=== PATIENT | female | born 1955 | race Caucasian/White ===

== ENCOUNTER → 2018-01-09 | Day surgery (SDC) | payer BC, OTHER ==
[2018-01-08 11:13] VITALS: BMI 28.9
[~2018-01-09] MED LIST: Cyclopentolate 1% Opth Drop 2 ML BOT FS SCH; Cyclopentolate 1% Opth Drop 2 ML BOT ONE; EPINEPHrine 0.3 MG in Ophthalmic Irrigation Solution 500 ML FS SCH; Fentanyl 100 MCG/2 ML VIAL ONE; Lidocaine 1% PF 5 ML VIAL ONE; Midazolam HCl 2 mg/2 ml Vial ONE; Ondansetron HCl/PF 4 MG/2 ML Vial ONE; Phenylephrine 2.5% Ophth Soln 5 ML BOT FS SCH; Phenylephrine 2.5% Ophth Soln 5 ML BOT ONE; Propofol 200 MG/20 ML VIAL ONE; ePHEDrine/0.9% NaCl/PF SYRINGE 50 mg/10 ml ONE
--- NOTE | 2018-01-09 12:39 | OP ---
DATE OF PROCEDURE: 01/09/2018 PREOPERATIVE DIAGNOSIS: Glaucoma, vitreous hemorrhage, right eye. POSTOPERATIVE DIAGNOSIS: Glaucoma, vitreous hemorrhage, right eye. PROCEDURES: Pars plana vitrectomy and panretinal photocoagulation, tube shunt, scleral patch graft, right eye. SURGEON: Erwin Murry M.D. ANESTHESIA: General endotracheal anesthesia. PROCEDURE IN DETAIL: The patient was identified in the preoperative holding area. Appropriate infor med consent for the planned surgical procedure on the right eye had been obtained. The patient was t ransported to the operative suite where appropriate cardiopulmonary monitoring was established. Loca l anesthesia was obtained using retrobulbar and modified Van Lint lid block using 50/50 mixture of 4% lidocaine and 0.75% bupivacaine. The patient was prepped and draped in the usual sterile manner for ophthalmic surgery on the right eye. Lid speculum was placed in the right eye. The 25-gauge trocar s were placed in conjunctiva and sclera supratemporally, inferotemporally, and supranasally. Infusio n line was placed inferotemporally. Light pipe and vitreous cutter were inserted into the eye. Core of vitrectomy was performed. Vitreus space was trimmed back 360 degrees. Panretinal photocoagulati on was placed into all non-macular areas of the retina. FP7 tube shunt was placed superior temporall y, inserted through the limbus 4 mm posterior to the limbus and was fixated in place with 5-0 mersile ne sutures. A Tutoplast graft was placed over the tube shunt entry point and fixated into place with 7-0 Vicryl suture. Conjunctiva was closed with 6-0 plain gut suture. Retrobulbar Kenalog and subco njunctival Ancef were placed. Atropine and antibiotic ointment were placed, and the eye was patched and shielded. The patient was taken to the postoperative recovery unit in good condition having suff ered no immediate perioperative complications. The patient was instructed to keep patch and shield o n, avoid lifting or bending, and follow up in the morning with Dr. Murry.
== END ==
LOC: SDC 08:47
PROVIDERS: ATTEND Ophthalmology Retina Specialist
PROC: 08T43ZZ Resection of Right Vitreous, Percutaneous Approach (ICD-10-PCS; principal; 2018-01-09)
PROC: 08QE3ZZ Repair Right Retina, Percutaneous Approach (ICD-10-PCS; principal; 2018-01-09)
PROC: 08123J4 Bypass Right Anterior Chamber to Sclera with Synthetic Substitute, Percutaneous Approach (ICD-10-PCS; principal; 2018-01-09)
DX: H40.89 Other specified glaucoma (principal); H43.11 Vitreous hemorrhage, right eye; E89.0 Postprocedural hypothyroidism; J45.909 Unspecified asthma, uncomplicated; Z79.890 Hormone replacement therapy; Z79.52 Long term (current) use of systemic steroids; Z79.899 Other long term (current) drug therapy; Z88.8 Allergy status to other drugs, medicaments and biological substances; Z98.49 Cataract extraction status, unspecified eye; Z90.710 Acquired absence of both cervix and uterus; Z98.890 Other specified postprocedural states; Z92.3 Personal history of irradiation
CPT/HCPCS: J0171; J2001; J2250; J2405; J2704; J3010

== ENCOUNTER 2018-05-30 14:29 | Inpatient (IN) | payer BC ==
[~2018-05-30 14:29] MED LIST changes: -Cyclopentolate 1% Opth Drop 2 ML BOT FS SCH; -Cyclopentolate 1% Opth Drop 2 ML BOT ONE; -EPINEPHrine 0.3 MG in Ophthalmic Irrigation Solution 500 ML FS SCH; -Fentanyl 100 MCG/2 ML VIAL ONE; +ISOVUE-370 76%-LOCM 1 ML ONE; -Lidocaine 1% PF 5 ML VIAL ONE; -Midazolam HCl 2 mg/2 ml Vial ONE; -Ondansetron HCl/PF 4 MG/2 ML Vial ONE; -Phenylephrine 2.5% Ophth Soln 5 ML BOT FS SCH; -Phenylephrine 2.5% Ophth Soln 5 ML BOT ONE; -Propofol 200 MG/20 ML VIAL ONE; -ePHEDrine/0.9% NaCl/PF SYRINGE 50 mg/10 ml ONE
[2018-05-30 14:57] LABS: #Eosinphils 0.1 thou/uL (0.0-0.7); #Lymphocytes 0.8 thou/uL (1.20-3.40); #Monocytes 0.3 thou/uL (0.11-0.59); #Neutrophils 10.4 thou/uL (1.40-6.50); %Basophils 0.1 % (0.0-1.0); %Eosinophils 0.5 % (0.0-10.0); %Lymphocytes 6.6 % (21.0-51.0); %Monocytes 2.5 % (0.0-10.0); %Neutrophils 90.3 % (42.0-75.0); Hemoglobin 14.7 g/dL (12.0-16.0); Mean Corpuscular HGB CONC 33.1 g/dL (32.0-36.0); Mean Corpuscular Hemoglobin 32.1 pg (27.0-31.0); Mean Corpuscular Volume 97.1 fL (78.0-98.0); Mean Platelet Volume 7.7 fL (7.4-10.4); Platelet Count 263 thou/uL (130-400); RBC Distribution Width 12.4 % (11.5-14.5); Red Blood Cell (RBC) Count 4.58 mill/uL (4.20-5.40); White Blood Cell (WBC) Count 11.5 thou/uL (4.8-10.8)
[2018-05-30 15:03] LABS: INR-International Normal Ratio 1.2; PTT 26.4 SEC (22.9-36.1); Prothrombin Time 14.8 SEC (12.0-14.7)
[2018-05-30 15:18] LABS: ALT (SGPT) 97 U/L (8-55); AST (SGOT) 54 U/L (5-34); Albumin 4.2 g/dL (3.4-4.8); Alkaline Phosphatase 100 U/L (40-150); Anion Gap 13 mmol/L (10-20); BUN (Urea Nitrogen) 21 mg/dL (9.8-20.1); Bilirubin, Total 1.1 mg/dL (0.2-1.2); CK (CPK) 36 U/L (29-168); Calc. Creatinine Clearance 0 mL/min (70-130); Calcium 9.2 mg/dL (7.8-10.44); Carbon Dioxide 29 mmol/L (23-31); Chloride 104 mmol/L (98-107); Estimated GFR-MDRD 50; Globulin 2.3 g/dL (2.4-3.5); Glucose 125 mg/dL (80-115); Protein, Total 6.5 g/dL (6.0-8.3); Sodium 141 mmol/L (136-145)
[2018-05-30 15:23] LABS: CKMB 2.5 ng/mL (0-6.6); Troponin I 0.018 ng/mL (< 0.028)
--- NOTE | 2018-05-30 15:30 | RAD ---
CHEST 1 VIEW: HISTORY: Dyspnea. COMPARISON: None. FINDINGS: Normal cardiac silhouette. Pulmonary vessels and hilum are normal. Costophrenic angles are clear. Bibasilar pleural and parenchymal changes. No pneumothorax or osseous abnormality. IMPRESSION: Bibasilar pleural and parenchymal changes. POS: [facility]
[2018-05-30] MEDS ORDERED: Furosemide 40 MG/4 ML VIAL ONE (16:02)
--- NOTE | 2018-05-30 16:46 | CT ---
CTA OF THE THORAX UTILIZING IV CONTRAST AND 3D REFORMATTED IMAGING 05/30/18 INDICATION: 63-year-old female with heart failure and shortness of breath with exertion. FINDINGS: No central or segmental pulmonary embolus is present. There are small to moderate sized bilateral ple ural effusions. There is air space consolidation within the lingula which may reflect an area of volu me loss; however, focal pneumonia cannot be excluded. There is bibasilar atelectasis. There is patchy ground glass opacity seen bilaterally suspicious for air space edema. There is moderate cardiomegaly . The visualized upper abdomen reveals no definite acute abnormality. There is scattered degenerative a nd osteoarthritic change. IMPRESSION: 1. No definite central or segmental pulmonary embolus. Findings suggesting mild to moderate CHF. 2. Air space consolidation in the lingula may reflect subsegmental volume loss; however, pneumon ia cannot be excluded. Recommend correlation with clinical examination. POS: [facility]
[2018-05-30] MEDS ORDERED: Nitroglycerin 2% Ointment 1 INCH/1 GM Packet ONE (16:56)
[2018-05-30] MEDS: Enoxaparin Sodium 40 MG/0.4 ML SYRINGE SC SCH (20:58)
[2018-05-30] MEDS: Carvedilol 3.125 MG TAB PO SCH (20:58)
--- NOTE | 2018-05-31 00:36 | HP ---
DATE OF ADMISSION: 05/30/2018 TIME: 8:20 p.m. HISTORY OF PRESENT ILLNESS: This is a 63-year-old white female with a history of asthma and hypothyr oidism, who presents with shortness of breath. The patient has a long history of asthma, being treat ed off and on with steroids. She normally takes Advair and ProAir on a p.r.n. basis. 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 She is quite physically fit. Her last asthma attack was in 03/2018 while visiting in [place]. She had a sudden onset of shortness of breath and she uses her Advair and Pr oAir was some improvement. [facility] and she was given a steroid injection and did improve to some extent, but never returned to baseline. Last week she was in [place] and she again developed episode of chest tightness and shortness of breath. She had no upper respiratory symptoms. She tried her Advair and ProAir without relief. Her legs began to swell and it was impos sible for her to sleep at night. She states she has chronic hoarseness due to her Advair. She went to the office today and saw Dr. Woodruff who directed her to the emergency room suspecting some possib le cardiac issue. BNP was performed, which was 1180 as well as an elevated D-dimer. In the ER, she was evaluated, given Lasix and diuresed approximately [address] angio of her chest was performed, wh ich did not reveal any pulmonary embolus. At this time, patient is feeling much better, breathing ea sier. PAST MEDICAL HISTORY: Hypothyroidism, asthma. Allergies to cats, ammonia and bleach. History of so me type of cancer in 06/2012. PAST SURGICAL HISTORY: Partial thyroidectomy. FAMILY HISTORY: Unremarkable. SOCIAL HISTORY: She is a nonsmoker, does not drink. MEDICATIONS: Estratest daily, Advair 100/50 b.i.d., albuterol inhaler 2 puffs q.4 hours p.r.n., omep razole 40 daily, presently on a prednisone taper. ALLERGIES: None to any medications PHYSICAL EXAMINATION: VITAL SIGNS: Blood pressure 141/97, pulse 117, respirations 18, afebrile. GENERAL: In no acute distress at this time. HEENT: Clear. HEART: Regular rate and rhythm. LUNGS: With bibasilar rales. ABDOMEN: Soft. EXTREMITIES: 1+ trace edema. LABORATORY DATA: White count 11.5, H&H 14 and 44, platelet 263. INR 1.2. Sodium 141, potassium 5.0 , creatinine 1.09, BUN 21, blood sugar 125. AST 54, ALT 97. BNP 1205. Troponin 10.018. CT angio n egative. Chest x-ray revealed bibasilar pleural and parenchymal changes. ASSESSMENT: 1. Congestive heart failure, rule out non-ST segment elevation myocardial infarction, rule out flash pulmonary edema, rule out coronary artery disease. 2. Hypothyroidism. 3. Asthma. 4. Some type of unknown cancer, which we will have to ask patient more in detail. PLAN: 1. Admit to tele. 2. Diurese with Lasix. 3. Nitroglycerin started. 4. Lovenox 40 q. day. 5. Consult Cardiology. 6. Echocardiogram. 7. CBC, comprehensive in a.m.
[2018-05-31 05:30] LABS: ALT (SGPT) 82 U/L (8-55); AST (SGOT) 39 U/L (5-34); Albumin 3.5 g/dL (3.4-4.8); Alkaline Phosphatase 82 U/L (40-150); Anion Gap 9 mmol/L (10-20); BUN (Urea Nitrogen) 23 mg/dL (9.8-20.1); Bilirubin, Total 0.9 mg/dL (0.2-1.2); Calc. Creatinine Clearance 56 mL/min (70-130); Calcium 8.8 mg/dL (7.8-10.44); Carbon Dioxide 36 mmol/L (23-31); Chloride 102 mmol/L (98-107); Estimated GFR-MDRD 51; Globulin 1.9 g/dL (2.4-3.5); Glucose 83 mg/dL (80-115); Potassium 4.7 mmol/L (3.5-5.1); Protein, Total 5.4 g/dL (6.0-8.3); Sodium 142 mmol/L (136-145)
[2018-05-31 05:39] LABS: #Eosinphils 0.1 thou/uL (0.0-0.7); #Lymphocytes 1.6 thou/uL (1.20-3.40); #Neutrophils 8.6 thou/uL (1.40-6.50); %Basophils 0.1 % (0.0-1.0); %Eosinophils 0.9 % (0.0-10.0); %Lymphocytes 14.1 % (21.0-51.0); %Monocytes 8.7 % (0.0-10.0); %Neutrophils 76.2 % (42.0-75.0); Hemoglobin 13.5 g/dL (12.0-16.0); Mean Corpuscular HGB CONC 32.2 g/dL (32.0-36.0); Mean Corpuscular Hemoglobin 31.6 pg (27.0-31.0); Mean Corpuscular Volume 98.1 fL (78.0-98.0); Mean Platelet Volume 8.1 fL (7.4-10.4); Platelet Count 232 thou/uL (130-400); RBC Distribution Width 12.3 % (11.5-14.5); Red Blood Cell (RBC) Count 4.27 mill/uL (4.20-5.40); White Blood Cell (WBC) Count 11.3 thou/uL (4.8-10.8)
[2018-05-31] MEDS: Furosemide 40 MG/4 ML VIAL SLOW IVP SCH ×2 (06:38→14:16)
[2018-05-31] MEDS ORDERED: Estrogen,Ester/Me-Testosterone 0.625 mg/1.25 mg Tablet PO SCH (09:00)
--- NOTE | 2018-05-31 09:27 | PRG ---
DATE OF SERVICE: 05/31/2018 SUBJECTIVE: The patient is breathing much easier this morning. Last night, she was able to lay flat . OBJECTIVE: VITAL SIGNS: Temperature 97.9, pulse 66, respirations 20, pulse ox 95, blood pressure 120/80. HEART: Regular rate and rhythm. LUNGS: With relatively clear and markedly decreased bilateral rales. ABDOMEN: Soft. EXTREMITIES: With no edema. LABORATORY DATA: White count 11.3, H&H is 13 and 41. Sodium 142, potassium 4.7, creatinine 1.07, BU N 23. ASSESSMENT: 1. New onset congestive heart failure. 2. Hypothyroidism. 3. Asthma. PLAN: 1. Continue diuresis. 2. Consult Dr. Oconnor. 3. Echocardiogram pending today.
[2018-05-31] MEDS: Enoxaparin Sodium 40 MG/0.4 ML SYRINGE SC SCH (09:30)
[2018-05-31] MEDS: Carvedilol 3.125 MG TAB PO SCH ×2 (09:30→21:22)
[2018-05-31] MEDS: Aspirin 325 MG TAB PO SCH (09:31)
[2018-05-31] MEDS: Losartan 25 MG TAB PO SCH (09:31)
[2018-05-31 09:57] LABS: CKMB 1.6 ng/mL (0-6.6); Troponin I 0.015 ng/mL (< 0.028)
[2018-05-31 16:50] VITALS: BMI 28.9
[2018-05-31] MEDS ORDERED: Communication Order-Pharmacy FS SCH (18:45)
[2018-05-31] MEDS: Enoxaparin Sodium 60 MG/0.6 ML SYRINGE SC SCH (21:22)
[2018-06-01] MEDS: Furosemide 40 MG/4 ML VIAL SLOW IVP SCH ×2 (05:04→14:36)
[2018-06-01] MEDS: Enoxaparin Sodium 60 MG/0.6 ML SYRINGE SC SCH ×2 (08:52→20:10)
[2018-06-01] MEDS: Carvedilol 3.125 MG TAB PO SCH ×2 (08:52→20:10)
[2018-06-01] MEDS: Aspirin 325 MG TAB PO SCH (08:52)
[2018-06-01] MEDS: Losartan 25 MG TAB PO SCH (08:53)
--- NOTE | 2018-06-01 09:02 | PRG ---
DATE OF SERVICE: 06/01/2018 SUBJECTIVE: No complaints of chest pain, shortness of breath, nausea or vomiting. OBJECTIVE: VITAL SIGNS: Temperature 97.6, pulse 62, respirations 16, pulse ox 97, blood pressure 128/81, weight went from 150-145. CARDIOVASCULAR: Regular rate and rhythm. LUNGS: Clear. ABDOMEN: Soft. EXTREMITIES: With no edema. ASSESSMENT: 1. New onset congestive heart failure. 2. Combined systolic/diastolic congestive heart failure. 3. Decreased ejection fraction of 10%-15%. 4. Dilated left atrium and ventricle. 5. Hypothyroidism. 6. Asthma. PLAN: 1. Continue diuresis. 2. I had a long discussion with the patient about her weak heart. I discussed the ejection fraction of 10%. Her prognosis is guarded. Discussed tomorrow's cardiac catheterization, which may reveal c oronary artery disease which may require stent placement or bypass surgery. However, prognosis is un known. She will have to only time will tell. She will require follow up echocardiogram to see if he r ejection fraction improves or does not improve. Also informed her that she would have to be on cho lesterol medicines as well as blood pressure medicines to protect her heart in the future and also di scussed the risks and benefits of cardiac catheterization.
--- NOTE | 2018-06-01 09:02 | CON ---
DATE OF CONSULTATION: 05/31/2018 INDICATION FOR CONSULTATION: A 63-year-old female with new onset congestive heart failure. 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 She then got some impr ovement without any significant treatment. She thought she was having an asthma attack. She was cuba nelson on steroids and medications, but then she noticed that the Advair and the other inhalers are not actually helping, and then she started noticing last week that she became more short of breath and al so had an episode of chest pain which she did actually have also back in March. She described it being a crushing type chest pain which lasted 5-10 minutes, and then she came back to normal, but unfortun ately the shortness of breath and dyspnea on exertion and the lower extremity edema has continued to be present. She presented to the physician's office and was admitted to the hospital. PAST MEDICAL HISTORY: Significant for hypothyroidism, asthma. She has had a partial thyroidectomy. She has had cataract surgery. She had a right eye cancer which was treated with radiation in the [facility]. SOCIAL HISTORY: She is , has 6 children with no heart disease. She has no alcohol or tobacco abuse. She remains very active. FAMILY HISTORY: Noncontributory. There is no early family history of heart disease. ALLERGIES: She is allergic to CATS, AMMONIA and BLEACH. PRESENT MEDICATIONS: Include aspirin, Coreg, Lovenox, we told to increase the dose of this to 1 mg p er kilograms b.i.d., furosemide, losartan. REVIEW OF SYSTEMS: She wears glasses. She says she has had some problems with asthma in the past, b ut otherwise, her 12-point review of systems is unremarkable except what was noted the history of pre sent illness. PHYSICAL EXAMINATION: GENERAL: Reveals a very pleasant, well-developed, well-nourished female. VITAL SIGNS: Blood pressure is 112/73, heart rate is 65 and regular, respiratory rate is 20. She is afebrile. HEENT: Reveals the head to be normocephalic and atraumatic. Carotid pulses are present. There were no bruits. There is no JVD. The thyroid was not enlarged. Oral mucosa was pink. CHEST: Clear to auscultation without any significant rales or rhonchi. There are some decreased micah ath sounds at the bases, otherwise there were no wheezes noted. CARDIOVASCULAR: Exam reveals a regular rate and rhythm. I did not hear an S3 nor an S4. She does h ave an S1, S2, normally which is normal. She had no significant murmurs. ABDOMEN: Soft and nontender. Positive bowel sounds are present. I do not feel any masses or palpit ations. Femoral pulses are present. EXTREMITIES: Showed no clubbing or cyanosis. She has minimal ankle edema. Pedal pulses are present . NEUROLOGIC: The patient appears to be intact. SKIN: Warm and dry. LABORATORY DATA: Echocardiogram performed today shows ejection fraction of 10-15% with a left pleura l effusion. She has mild left ventricular dilatation, this what appears to be 7.9 x 9.6 mm thrombus in the left ventricle. She has mild tricuspid and mitral valve regurgitation. The left atrium was d ilated. Also, the inferior vena cava appeared to be dilated, most likely due to volume overload. He r creatinine is 1.07. INR is 1.2, hemoglobin 13.5. BNP was 1200. IMPRESSION: 1. New-onset congestive heart failure with severe cardiomyopathy of uncertain etiology. The patient will need to undergo further evaluation by cardiac catheterization to ensure she did not have underl lydia severe coronary artery disease. She may have suffered in a silent myocardial infarction. We wi ll need to further evaluate to determine what the etiology of her cardiomyopathy is. She does have a history of hypothyroidism in the past, but did not appear to be severely hypothyroid at this time. 2. History of chest discomfort which most likely is cardiac in nature. She certainly may have likel y has underlying coronary artery disease. Her risk factors are certainly very minimal; however, she appears to have likely coronary artery disease. 3. Left ventricular thrombus. We will treat this by Lovenox at this time and hopefully, this will r esolve on its own. She is obviously at risk of having a CVA with left ventricular thrombus. This is a very unfortunate for this lady, but hopefully the ejection fraction will improve and perhaps we ca n determine the etiology. This may be viral in etiology also uncertain for sure of what the cause of this is and she may improve on her own. Otherwise, she will obviously need to undergo an AICD impla nt prior to discharge and most likely she will need to undergo a LifeVest insulation in order to decr ease the risk of sudden cardiac .
[2018-06-01] MEDS: Estrogen,Ester/Me-Testosterone 0.625 mg/1.25 mg Tablet PO SCH (09:43)
--- NOTE | 2018-06-01 14:55 | PDOC.CTH ---
<Maylin Bonner - Last Filed: 06/01/18 14:55> Cardiology Progress Note - Subjective The pt seen and examined. No overnight events. No cardiac complaints. She stated she can breath better today. She has lost 5 lbs over 24 hrs. - Objective Vital Signs Temp Pulse Resp BP Pulse Ox 06/01/18 12:17 97.8 F 65 16 100/62 95 06/01/18 08:13 97.6 F 71 16 122/78 96 06/01/18 08:00 97.6 F 71 16 96 06/01/18 04:14 97.6 F 62 16 128/81 97 Weight 145 lb 4.8 oz 05/31/18 06/01/18 06/02/18 06:59 06:59 06:59 Intake Total 1260 Balance 1260 - Physical Examination General/Neuro: alert & oriented x3 Neck: no JVD present Lungs: CTA Heart: RRR Abdomen: soft Extremities: other: (No edema) - Telemetry Telemetry Rhythm: SR 70s - Labs Result Diagrams: 05/31/18 04:59 05/31/18 04:59 Troponin/CKMB CK-MB (CK-2) 1.6 ng/mL (0-6.6) 05/31/18 05:00 Troponin I 0.015 ng/mL (< 0.028) 05/31/18 05:00 - Assessment/Plan 1. Acute on Chronic Systolic HF - EF 10%; Plan for LHC on 06/02/18; On Coreg 3.125mg BID, Losartan 12.5mg qd, and Lasix 40mg IV BID. 2. Severe CMY - EF 10%; Plan for LHC on 06/02/18; Possible LifeVest at discharge 3. Lt vent. thrombus - On Lovenox BID 4. Hypothyroidism with hx of partial thyroidectomy 5. Asthma - stable MAR reviewed * Plan for LHC on 06/02/18; The procedure and the risk of LHC were explained to the pt. The risk included, but not limited to: hemorrhage, infection, perforation, thrombosis, anaphylaxis reaction, CVA, AR, and . The pt voiced understanding and agreed to proceed the procedure. Review of Systems - Review of Systems Constitutional: reports: weakness EENTM: reports: no symptoms reported Respiratory: reports: SOB with excertion Cardiac (ROS): reports: no symptoms reported : reports: no symptoms reported Musculoskeletal: reports: no symptoms reported <Weston Oconnor - Last Filed: 06/01/18 22:19> Cardiology Progress Note - Objective Vital Signs Temp Pulse Resp BP BP Pulse Ox 06/01/18 20:10 98 F 70 18 109/74 95 06/01/18 16:10 97.6 F 66 14 102/68 94 L 06/01/18 12:17 97.8 F 65 16 100/62 95 Weight 145 lb 4.8 oz 05/31/18 06/01/18 06/02/18 06:59 06:59 06:59 Intake Total 1260 825 Balance 1260 825 - Labs Result Diagrams: 05/31/18 04:59 05/31/18 04:59 Troponin/CKMB CK-MB (CK-2) 1.6 ng/mL (0-6.6) 05/31/18 05:00 Troponin I 0.015 ng/mL (< 0.028) 05/31/18 05:00 - Assessment/Plan Pt. was seen and eval. by me. I have discussed the pt. and agree with the A/P by the HARRISON Bonner.I discussed the indication for cardiac cath and the risks involved. Plan for cath tomorrow. Chest clear. RRR.
[2018-06-02] MEDS: Furosemide 40 MG/4 ML VIAL SLOW IVP SCH ×2 (05:28→15:17)
[2018-06-02] MEDS: Estrogen,Ester/Me-Testosterone 0.625 mg/1.25 mg Tablet PO SCH (05:29)
[2018-06-02] MEDS: Losartan 25 MG TAB PO SCH (05:29)
[2018-06-02] MEDS: Aspirin 325 MG TAB PO SCH (05:29)
[2018-06-02] MEDS: Carvedilol 3.125 MG TAB PO SCH ×2 (05:29→20:34)
--- NOTE | 2018-06-02 07:46 | PRG ---
DATE OF SERVICE: 06/02/2018 SUBJECTIVE: The patient is doing well this morning. She slept well. No complaints of chest pain or shortness of breath. OBJECTIVE: VITAL SIGNS: Temperature 98.3, pulse 70, respirations 16, pulse ox 93, blood pressure 111/69, weight decreased 4 pounds over the past 24 hours. HEART: Regular rate and rhythm. LUNGS: Clear. ABDOMEN: Soft. EXTREMITIES: No edema. LABORATORY DATA: None. ASSESSMENT: 1. New onset congestive heart failure. 2. Systolic/diastolic congestive heart failure. 3. Decreased ejection fraction 10%-15%. 4. Dilated left atrium and ventricle. 5. Hypothyroid. 6. Aspirin. PLAN: Cardiac catheterization today. I discussed the patient's medical condition and the catheteriz ation procedure today with the patient and a daughter from [place]. 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
[2018-06-02] MEDS ORDERED: Lidocaine 1% (PF) 30 ML VIAL ONE (08:38)
[2018-06-02] MEDS ORDERED: Heparin 10,000 UNITS/1 ML VIAL ONE (08:49)
[2018-06-02] MEDS ORDERED: Nitroglycerin 100MG/250ML BOT 0 ML ONE (08:50)
[2018-06-02] MEDS ORDERED: Verapamil 5 MG/2 ML VIAL ONE (08:52)
[2018-06-02] MEDS ORDERED: Nitroglycerin 100MG/250ML BOT 250 ML ONE (08:53)
[2018-06-02] MEDS ORDERED: Midazolam HCl 2 mg/2 ml Vial ONE (10:31)
[2018-06-02] MEDS ORDERED: Nitroglycerin 0.4 MG TAB (25 Tab Bottle) SL PRN (11:33)
[2018-06-02] MEDS ORDERED: Acetaminophen/Codeine 30-300mg Tablet PO PRN ×2 (11:33)
[2018-06-02] MEDS ORDERED: traMADol HCl 50 MG TAB PO PRN (11:33)
[2018-06-02] MEDS ORDERED: Sodium Chloride 0.9% 200 ML IV SCH (11:33)
[2018-06-02] MEDS ORDERED: Iopamidol 370 76% 100 ML VIAL ONE (13:24)
[2018-06-02] MEDS ORDERED: Warfarin Sodium 10 MG TAB PO SCH (17:00)
[2018-06-02] MEDS: Sacubitril 24.5 MG/Valsartan 25.5 MG TABLET PO SCH (20:34)
[2018-06-02] MEDS ORDERED: Sacubitril 24.5 MG/Valsartan 25.5 MG TABLET PO SCH (21:00)
[2018-06-03 00:38] LABS: INR-International Normal Ratio 1.1; Prothrombin Time 14.6 SEC (12.0-14.7)
[2018-06-03] MEDS ORDERED: Enoxaparin Sodium 60 MG/0.6 ML SYRINGE SC SCH (01:00)
[2018-06-03] MEDS: Furosemide 40 MG/4 ML VIAL SLOW IVP SCH ×2 (05:52→13:59)
[2018-06-03] MEDS ORDERED: Warfarin Sodium 10 MG TAB PO SCH (08:30)
--- NOTE | 2018-06-03 09:12 | PRG ---
DATE OF SERVICE: 06/03/2018 SUBJECTIVE: The patient is doing well this morning. No complaints of chest pain or shortness of micah ath. She is feeling much better than upon admission. LifeVest has been placed. OBJECTIVE: VITAL SIGNS: Temperature 97.7, pulse 82, respirations 16, pulse ox 95, blood pressure 99/55. HEART: Regular rate and rhythm. LUNGS: Clear. ABDOMEN: Soft. EXTREMITIES: No edema. LABORATORY: None. INR 1.1. ASSESSMENT: 1. New onset congestive heart failure. 2. Systolic/diastolic congestive heart failure. 3. Decreased ejection fraction 10-15%. 4. Left ventricular thrombus. 5. Hypothyroid. 6. Asthma. 7. Postop day #1, status post cardiac catheterization revealing clean vessels. PLAN: 1. LifeVest in place. 2. For some reason Coumadin was not initiated yesterday. We will start that today. 3. Dr. Oconnor will discuss with the patient the discharge plans. We will need to decide whether to an ticoagulate fully with Coumadin prior to or discharge or discharge and at the same time provide Loven ox. We will discuss with Dr. Oconnor. 4. Have a long conversation about the patient's cardiomyopathy. She is well aware that only time wi ll tell. Repeat echocardiograms need to be done in the future to assess whether cardiac function is improving. We talked at length about her strenuous yoga schedule. 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 I did recommend that she take a break for 1-2 weeks and when she does resume, that she can only sit until further assessments. I encouraged strongly that she did not do any strenuous activit ies because her heart is not strong enough.
[2018-06-03] MEDS: Aspirin 325 MG TAB PO SCH (09:41)
[2018-06-03] MEDS: Sacubitril 24.5 MG/Valsartan 25.5 MG TABLET PO SCH ×2 (09:42→21:09)
[2018-06-03] MEDS: Carvedilol 3.125 MG TAB PO SCH ×2 (09:42→21:08)
[2018-06-03] MEDS: Estrogen,Ester/Me-Testosterone 0.625 mg/1.25 mg Tablet PO SCH (09:44)
--- NOTE | 2018-06-03 13:25 | PDOC.CTH ---
<Maylin Bonner - Last Filed: 06/03/18 13:23> Cardiology Progress Note - Subjective The pt seen and examined. No overnight events. No cardiac complaints. Her SBP was down to 60s with dizziness. - Objective Vital Signs Temp Pulse Resp BP BP Pulse Ox 06/03/18 08:00 97.7 F 82 16 95 06/03/18 07:45 97.7 F 82 16 99/55 L 95 06/03/18 04:00 98.2 F 54 L 18 98/53 L 94 L Weight 140 lb 1.6 oz 06/02/18 06/03/18 06/04/18 06:59 06:59 06:59 Intake Total 1185 960 Output Total 350 Balance 1185 610 - Physical Examination General/Neuro: alert & oriented x3 Neck: no JVD present Lungs: CTA Heart: RRR Abdomen: soft Extremities: other: (No edema) - Telemetry Telemetry Rhythm: SR 60s - Labs Result Diagrams: 05/31/18 04:59 05/31/18 04:59 Troponin/CKMB CK-MB (CK-2) 1.6 ng/mL (0-6.6) 05/31/18 05:00 Troponin I 0.015 ng/mL (< 0.028) 05/31/18 05:00 - Assessment/Plan 1. Acute on Chronic Systolic HF - EF 10%-15%, 7.9x9.6 mm thrombus in LV apex, mod dilated LA, mild-mod MR, mild TR, and mild [place]. S/p LHC on 06/02/18 with normal coronary arteries. Cut Coreg 3.125mg from 1 tab to 1/2 tab and hold Lasix 40mg IV BID for Hypotenstion, down to 60s. 2. Severe CMY - EF 10%; s/p LHC on 06/02/18; Possible LifeVest at discharge 3. Lt vent. thrombus - Coumadin with Lovenox BID; target INR: 2-3. 4. Hypothyroidism with hx of partial thyroidectomy 5. Asthma - stable MAR reviewed * For hypotension, 100ml bolus (100ml/h), cut Coreg 3.125mg from 1 tab to 1/2 tab BID, hold Lasix. Possible another 100ml bolus if her SBP < 90 and asymptomatic of fluid overload. Review of Systems - Review of Systems Constitutional: reports: weakness EENTM: reports: no symptoms reported Respiratory: reports: no symptoms reported Cardiac (ROS): reports: no symptoms reported ABD/GI: reports: no symptoms reported : reports: no symptoms reported <Weston Oconnor - Last Filed: 06/04/18 19:11> Cardiology Progress Note - Objective Vital Signs Temp Pulse Pulse Pulse Resp BP BP 06/04/18 16:00 97.7 F 72 16 06/04/18 12:43 06/04/18 12:00 97.7 F 70 14 06/04/18 09:48 74 70 101/56 L 102/53 L 06/04/18 08:00 97.7 F 64 12 BP Pulse Ox Pulse Ox Pulse Ox 06/04/18 16:00 103/60 97 06/04/18 12:43 93/58 L 06/04/18 12:00 85/60 L 97 06/04/18 09:48 97 95 06/04/18 08:00 99/61 95 Weight 142 lb 06/03/18 06/04/18 06/05/18 06:59 06:59 06:59 Intake Total 237 794 7999 Output Total 844 580 2955 Balance 610 630 -470 - Labs Result Diagrams: 06/04/18 04:49 06/04/18 04:49 Troponin/CKMB CK-MB (CK-2) 1.6 ng/mL (0-6.6) 05/31/18 05:00 Troponin I 0.015 ng/mL (< 0.028) 05/31/18 05:00 - Assessment/Plan Pt. seen and eval. by me. I have discussed the plan of care with the BRONC BUSTER and agree. She seems to be over diuresed at tis point and has orthostasis. Chest clear. RRR. Pt. has Life-Vest at this time.
[2018-06-03] MEDS ORDERED: Sodium Chloride 0.9% 100 ML IV SCH (13:30)
[2018-06-03] MEDS ORDERED: Warfarin Sodium 5 MG TAB PO SCH (17:00)
[2018-06-04] MEDS ORDERED: Sodium Chloride 0.9% 200 ML IVPB SCH (01:15)
[2018-06-04] MEDS ORDERED: Sodium Chloride 0.9% 250 ML 200 ML IVPB SCH (01:30)
[2018-06-04 06:09] LABS: #Basophils 0.1 thou/uL (0.0-0.2); #Eosinphils 0.2 thou/uL (0.0-0.7); #Lymphocytes 2.5 thou/uL (1.20-3.40); #Neutrophils 6.4 thou/uL (1.40-6.50); %Basophils 0.8 % (0.0-1.0); %Eosinophils 1.7 % (0.0-10.0); %Lymphocytes 24.9 % (21.0-51.0); %Monocytes 9.9 % (0.0-10.0); %Neutrophils 62.7 % (42.0-75.0); Hemoglobin 16.4 g/dL (12.0-16.0); Mean Corpuscular HGB CONC 32.5 g/dL (32.0-36.0); Mean Corpuscular Hemoglobin 31.2 pg (27.0-31.0); Mean Corpuscular Volume 96.1 fL (78.0-98.0); Mean Platelet Volume 7.6 fL (7.4-10.4); Platelet Count 240 thou/uL (130-400); RBC Distribution Width 12.4 % (11.5-14.5); Red Blood Cell (RBC) Count 5.27 mill/uL (4.20-5.40); White Blood Cell (WBC) Count 10.2 thou/uL (4.8-10.8)
[2018-06-04 06:24] LABS: INR-International Normal Ratio 1.4; Prothrombin Time 17.3 SEC (12.0-14.7)
[2018-06-04 06:25] LABS: BUN (Urea Nitrogen) 26 mg/dL (9.8-20.1); Calc. Creatinine Clearance 47 mL/min (70-130); Calcium 8.6 mg/dL (7.8-10.44); Estimated GFR-MDRD 45; Glucose 89 mg/dL (80-115)
[2018-06-04] MEDS: Furosemide 40 MG/4 ML VIAL SLOW IVP SCH ×2 (06:32→14:29)
[2018-06-04 06:34] LABS: Anion Gap 13 mmol/L (10-20); Carbon Dioxide 35 mmol/L (23-31); Chloride 98 mmol/L (98-107); Sodium 141 mmol/L (136-145)
[2018-06-04] MEDS: Aspirin 325 MG TAB PO SCH (09:06)
[2018-06-04] MEDS: Carvedilol 3.125 MG TAB PO SCH ×2 (09:06→20:43)
[2018-06-04] MEDS: Enoxaparin Sodium 60 MG/0.6 ML SYRINGE SC SCH ×2 (09:07→20:43)
[2018-06-04] MEDS: Sacubitril 24.5 MG/Valsartan 25.5 MG TABLET PO SCH ×2 (12:12→20:44)
[2018-06-04] MEDS: Estrogen,Ester/Me-Testosterone 0.625 mg/1.25 mg Tablet PO SCH (12:13)
--- NOTE | 2018-06-04 13:11 | PRG ---
DATE OF SERVICE: 06/04/2018 SUBJECTIVE: Patient is doing very well. No complaints of chest pain or shortness of breath. The Li feVest is in place. OBJECTIVE: VITAL SIGNS: Temperature 97.8, pulse 56, respiration rate 18, O2 sat 95%, blood pressure 99/59, weig ht is 138. LABORATORY DATA: White count 10.2, H&H 16 and 50. INR is 1.4. Electrolytes: Sodium 141, potassium 5.0, creatinine 1.21, BUN 26. ASSESSMENT: 1. Acute on chronic systolic heart failure, ejection fraction 10-15% with a 9.6 mm left ventricular thrombus and a moderate dilated left atrium. 2. Status post left heart catheterization on 06/02/2018 with normal coronary arteries. 3. Severe cardiomyopathy with ejection fraction 10%. 4. Hypothyroid. 5. Asthma. PLAN: 1. LifeVest in place. Discussed the LifeVest procedures. 2. Coumadin 10 mg was given yesterday with an INR of 1.4; 10 mg of Coumadin will be given today. Lo venox also 60 q.12 also will be given subcutaneous in the meantime. 3. Dr. Oconnor will discuss discharge with the patient. 4. Add an additional conversation with the patient about management of heart failure and the titrati on of Lasix. For now, the Lasix is being held. At this point, she is diuresed significantly. Her w eight today is 138, ideal weight probably for her is going to be in the 140-145 range. We will margaret lesli to follow. Again, discussed the risk of the thrombus and causing a stroke. She is well aw are of this and that she needs to have a relatively sedentary lifestyle for now. 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
--- NOTE | 2018-06-04 14:45 | PDOC.CTH ---
<Maylin Bonner - Last Filed: 06/04/18 14:42> Cardiology Progress Note - Subjective The pt seen and examined. No overnight events. No cardiac complaints. Her BP went down to 80s after exercising. After 30 mins in bed, her SBP was up to 90s. She denied dizziness or lightheadedness. - Objective Vital Signs Temp Pulse Pulse Pulse Resp BP BP 06/04/18 12:43 06/04/18 12:00 97.7 F 70 14 06/04/18 09:48 74 70 101/56 L 102/53 L 06/04/18 08:00 97.7 F 64 12 06/04/18 03:52 97.8 F 56 L 18 BP BP Pulse Ox Pulse Ox Pulse Ox 06/04/18 12:43 93/58 L 06/04/18 12:00 85/60 L 97 06/04/18 09:48 97 95 06/04/18 08:00 99/61 95 06/04/18 03:52 99/59 L 95 Weight 142 lb 06/03/18 06/04/18 06/05/18 06:59 06:59 06:59 Intake Total 960 780 240 Output Total 350 150 Balance 610 630 240 - Physical Examination General/Neuro: alert & oriented x3 Neck: no JVD present Lungs: CTA Heart: RRR Abdomen: soft Extremities: other: (No edema) - Telemetry Telemetry Rhythm: SR - Labs Result Diagrams: 06/04/18 04:49 06/04/18 04:49 Troponin/CKMB CK-MB (CK-2) 1.6 ng/mL (0-6.6) 05/31/18 05:00 Troponin I 0.015 ng/mL (< 0.028) 05/31/18 05:00 - Assessment/Plan 1. Acute on Chronic Systolic HF - EF 10%-15%, 7.9x9.6 mm thrombus in LV apex, mod dilated LA, mild-mod MR, mild TR, and mild AK. S/p LHC on 06/02/18 with normal coronary arteries. Total 200ml x2 NS bolus for hypotension. Cut Coreg 3.125mg from 1 tab to 1/2 tab and hold Lasix 40mg IV BID for Hypertension. 2. Severe CMY - EF 10%; s/p LHC on 06/02/18; On LifeVest 3. Lt vent. thrombus - Coumadin with Lovenox BID; target INR: 2-3. 4. Hypothyroidism with hx of partial thyroidectomy 5. Asthma - stable MAR reviewed * For hypotension, 100ml bolus (100ml/h), cut Coreg 3.125mg from 1 tab to 1/2 tab BID, hold Lasix. Possible another 100ml bolus if her SBP < 90 and asymptomatic of fluid overload Review of Systems - Review of Systems Constitutional: reports: no symptoms reported EENTM: reports: no symptoms reported Respiratory: reports: no symptoms reported Cardiac (ROS): reports: no symptoms reported ABD/GI: reports: no symptoms reported : reports: no symptoms reported Musculoskeletal: reports: no symptoms reported <Weston Oconnor - Last Filed: 06/04/18 19:14> Cardiology Progress Note - Objective Vital Signs Temp Pulse Pulse Pulse Resp BP BP 06/04/18 16:00 97.7 F 72 16 06/04/18 12:43 06/04/18 12:00 97.7 F 70 14 06/04/18 09:48 74 70 101/56 L 102/53 L 06/04/18 08:00 97.7 F 64 12 BP Pulse Ox Pulse Ox Pulse Ox 06/04/18 16:00 103/60 97 06/04/18 12:43 93/58 L 06/04/18 12:00 85/60 L 97 06/04/18 09:48 97 95 06/04/18 08:00 99/61 95 Weight 142 lb 06/03/18 06/04/18 06/05/18 06:59 06:59 06:59 Intake Total 303 683 8446 Output Total 662 306 6958 Balance 610 630 -470 - Labs Result Diagrams: 06/04/18 04:49 06/04/18 04:49 Troponin/CKMB CK-MB (CK-2) 1.6 ng/mL (0-6.6) 05/31/18 05:00 Troponin I 0.015 ng/mL (< 0.028) 05/31/18 05:00 - Assessment/Plan Pt. seen and eval. by me. The BP is stable today. No complaints. Ambulating without problems. 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 Coumadin for LV thrombus. Pt. will probably be able to be d/c'd tomorrow. F/U with me in 2 weeks. She will need to be seen in the CHF clinic and have the INR checked there.
[2018-06-04] MEDS ORDERED: Warfarin Sodium 10 MG TAB PO SCH (17:00)
[2018-06-05] MEDS: Furosemide 40 MG/4 ML VIAL SLOW IVP SCH ×2 (06:14→14:30)
--- NOTE | 2018-06-05 08:01 | PRG ---
DATE OF SERVICE: 06/05/2018 SUBJECTIVE: The patient is doing well. No complaints of chest pain, shortness of breath. She is do ing her routine activities without difficulty. No complaints of lightheadedness or dizziness over th e past 24 hours. OBJECTIVE: VITAL SIGNS: Temperature 97.8, pulse 61, respirations 14, pulse ox 97, blood pressure 95/59. HEART: Regular rate and rhythm. LUNGS: Clear. ABDOMEN: Soft. LifeVest in place. EXTREMITIES: No edema. LABORATORY: None. INR pending this morning. ASSESSMENT: 1. Acute on chronic systolic heart failure, ejection fraction 10-15% with a 9.6 mm left ventricular thrombus and a moderately dilated left atrium. 2. Status post left heart catheterization on 06/02/2018 with normal coronary arteries. 3. Severe cardiomyopathy with ejection fraction 10%. 4. Hypothyroid. 5. Asthma. PLAN: 1. LifeVest in place. 2. Check INR this morning and possibly give another Coumadin 10 mg. 3. Instructed the patient to follow her weights daily. Her weight should be in the 140-145 range. Greater than this may be an issue that needs to be addressed with her physicians. 4. Her discharge medications at this time will be aspirin 325 mg daily, Coreg 1.625 p.o. b.i.d., Las ix 40 b.i.d., Entresto 24.5/25.5 p.o. b.i.d., Coumadin 5 p.o. daily, and Estratest at bedtime daily. 5. Follow up will be in the office in [address] Oconnor and with myself. 6. Possible discharge today if okay with Dr. Oconnor/Liang. If she is discharged I may call, out of medi cations to the pharmacy.
[2018-06-05 08:35] LABS: INR-International Normal Ratio 1.7; Prothrombin Time 19.7 SEC (12.0-14.7)
[2018-06-05] MEDS: Carvedilol 3.125 MG TAB PO SCH (09:16)
[2018-06-05] MEDS: Enoxaparin Sodium 60 MG/0.6 ML SYRINGE SC SCH (09:16)
[2018-06-05] MEDS: Aspirin 325 MG TAB PO SCH (09:16)
[2018-06-05 11:38] VITALS: TEMP 98.1
[2018-06-05] MEDS: Sacubitril 24.5 MG/Valsartan 25.5 MG TABLET PO SCH (11:39)
[2018-06-05] MEDS ORDERED: Warfarin Sodium 5 MG TAB PO SCH (12:15)
[2018-06-05 14:29] VITALS: BP 98/62
[2018-06-05] MEDS ORDERED: Warfarin Sodium 10 MG TAB PO SCH (17:00)
--- NOTE | 2018-06-05 19:56 | DIS ---
DATE OF ADMISSION: 05/30/2018 DATE OF DISCHARGE: 06/05/2018 DISCHARGE DIAGNOSES: 1. Acute on chronic systolic heart failure with ejection fraction of 10-15%. 2. Left ventricular mural thrombus 9.6 mm. 3. Moderately dilated left atrium and ventricle. 4. Status post heart catheterization 06/02/2018 with normal coronary arteries. 5. Severe cardiomyopathy with ejection fraction 10%. 6. Hypothyroid. 7. Asthma. 8. LifeVest in place. DISCHARGE MEDICATIONS: Aspirin 325 p.o. daily, Coreg 1.5625 p.o. b.i.d., Lasix 20 mg daily, Entresto 24.5/25.5 p.o. b.i.d., warfarin 5 p.o. daily, Estratest at bedtime daily. FOLLOWUP: Follow up Dr. Mian Driscoll in 1 week. Follow up with Dr. Oconnor 1 week. Follow up [facility] in 1 week. BRIEF HISTORY: This is a 63-year-old white female who presented with shortness of breath. 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 She has also had a history of asthma treated off and o n with steroids and inhalers. She normally takes Advair and ProAir on an as needed basis. In March of this year, she was visiting [place] and suddenly became ill. She had sudden onset of shortness o f breath and used her Advair and ProAir with some improvement. She was seen in an urgent care clinic and was given steroids. However, she has never returned to her baseline. She was again in [facility] recently and had a similar episode. Her Advair and ProAir did not help her. Her legs began to sw ell and it was becoming impossible to lay down and sleep at night. She developed hoarseness. She th en presented to the office and was noted to be in possible congestive heart failure and referred to [facility] emergency room where she was noted to be in congestive heart failure. CT angio of her chest, was found to be unremarkable. HOSPITAL COURSE: Echocardiogram was performed which revealed a 9.6 mm left mural thrombus with sever blank decreased left ventricular systolic function consistent with cardiomyopathy with an ejection frac tion of 10-15%, also a left atrium was moderately dilated as well as the left ventricle. Dr. Oconnor wa s consulted. A cardiac catheterization was performed which was found to be unremarkable. The suspec ariana diagnosis was a viral myocarditis leading to a cardiomyopathy. A LifeVest was placed. The patie nt was given precise instructions on the proper use of the LifeVest. The plan is to have a repeat ec hocardiogram in 2-3 months to hopefully see improvement of her ejection fraction. Her physical activ ity has been limited. She has been instructed not to return to yoga instructing until she follows wi th her doctors in another week. However, I did recommend that she possibly take a 2-week break from teaching due to the physical activity. Throughout her hospital stay, she was diuresed with Lasix. S he was started on Entresto, Coreg as well as Lasix. Patient with the diuresed significantly, losing significant amount of weight greater than 10 pounds. She was probably slightly over diuresed and her Lasix was held. She was started on Coumadin 10 mg for 2 days or INR ananya to 1.7. She will be given 5 mg prior to discharge. She will follow up in the [facility] as well as Dr. Oconnor. She will foll ow up in my office in one week and I will recheck her INR level. Patient has been instructed to adju st her Lasix at 20 mg daily. If her weight rises above 145 to take her Lasix 20 daily; if it goes be low 140, to hold her Lasix. I talked at length on several occasions about the severity of her illnes s as well as the use of her medications.
[2018-06-05] MEDS ORDERED: Sacubitril 24.5 MG/Valsartan 25.5 MG TABLET PO SCH (21:00)
== END 2018-06-05 15:27 | disposition home or self-care (01) | DRG 287 ==
LOC: ERS 14:29 → 2NO 20:05
PROVIDERS: ADMIT Family Medicine; ATTEND Family Medicine
PROC: 4A023N7 Measurement of Cardiac Sampling and Pressure, Left Heart, Percutaneous Approach (ICD-10-PCS; principal; 2018-06-02)
PROC: B215YZZ Fluoroscopy of Left Heart using Other Contrast (ICD-10-PCS; 2018-06-02)
PROC: B211YZZ Fluoroscopy of Multiple Coronary Arteries using Other Contrast (ICD-10-PCS; 2018-06-02)
DX: I50.23 Acute on chronic systolic (congestive) heart failure (principal); I42.9 Cardiomyopathy, unspecified; I24.0 Acute coronary thrombosis not resulting in myocardial infarction; E89.0 Postprocedural hypothyroidism; J45.909 Unspecified asthma, uncomplicated; I95.9 Hypotension, unspecified; Z79.899 Other long term (current) drug therapy; Z79.52 Long term (current) use of systemic steroids; Z79.890 Hormone replacement therapy; Z91.048 Other nonmedicinal substance allergy status; Z85.840 Personal history of malignant neoplasm of eye; Z92.3 Personal history of irradiation; Z79.82 Long term (current) use of aspirin
CPT/HCPCS: 36415; 71045; 71275; 80048; 80053; 82550; 82553; 83880; 84484; 85025; 85379; 85610; 85730; 93005; 93306; 93454; 93798; 96374; 99152; 99153; A4216; C1769; J1644; J1650; J1940; J2001; J2250

== ENCOUNTER 2019-05-25 12:15 | Outpatient (CLI) | payer BC, MEDICARE, OTHER ==
--- NOTE | 2019-05-25 12:58 | ULT ---
Exam: Bilateral renal ultrasound complete: HISTORY: Chronic kidney disease, stage III COMPARISON: None FINDINGS: Right kidney: 8.0 x 4.4 x 4 0.9 cm Left kidney: 9.2 x 5.0 x 5.0 cm No renal hydronephrosis. No evidence for abnormal perinephric process. 2.0 x 2.6 x 2.7 cm left lower pole renal cyst. Unremarkable appearing bladder. IMPRESSION: No hydronephrosis. Left lower pole renal cyst.
== END 2019-05-25 12:16 | disposition home or self-care (01) ==
LOC: ULT 12:15
PROVIDERS: ATTEND Internal Medicine Nephrology
DX: I12.9 Hypertensive chronic kidney disease with stage 1 through stage 4 chronic kidney disease, or unspecified chronic kidney disease (principal); N18.3 Chronic kidney disease, stage 3 (moderate); N28.1 Cyst of kidney, acquired
CPT/HCPCS: 76770

== ENCOUNTER 2019-05-29 08:03 | Outpatient (CLI) | payer BC, MEDICARE, OTHER ==
--- NOTE | 2019-06-03 11:32 | MMO ---
Bilateral MAMMO Bilat Screen [facility]. CLINICAL HISTORY: Patient is 64 years old and is seen for screening. The patient has no family history of breast cancer. The patient has no personal history of cancer. VIEWS: The views performed were: bilateral craniocaudal with tomosynthesis and bilateral mediolateral oblique with tomosynthesis. FILMS COMPARED: The present examination has been compared to a prior imaging study performed at [facility] on 03/20/2012. MAMMOGRAM FINDINGS: There are scattered fibroglandular densities. There are benign appearing calcifications seen in both breasts. There are also vascular calcifications. There are no suspicious masses, suspicious calcifications, or new areas of architectural distortion. IMPRESSION: THERE IS NO MAMMOGRAPHIC EVIDENCE OF MALIGNANCY. A ROUTINE FOLLOW-UP MAMMOGRAM IN 1 YEAR IS RECOMMENDED. THE RESULTS OF THIS EXAM WERE SENT TO THE PATIENT. ACR BI-RADS Category 2 - Benign finding MAMMOGRAPHY NOTE: 1. A negative mammogram report should not delay a biopsy if a dominant of clinically suspicious mass is present. 2. Approximately 10% to 15% of breast cancers are not detected by mammography. 3. Adenosis and dense breasts may obscure an underlying neoplasm. Reported by: TOMEKA NIETO MD Electonically Signed: [id number]
== END 2019-05-29 08:04 | disposition home or self-care (01) ==
LOC: BICMAMMO 08:03
PROVIDERS: ATTEND Physician Assistant
DX: Z12.31 Encounter for screening mammogram for malignant neoplasm of breast (principal)
CPT/HCPCS: 77063; 77067

== ENCOUNTER 2022-06-07 12:08 | Outpatient (CLI) | payer BC, MEDICARE, OTHER | END 2022-06-07 12:09 | disposition home or self-care (01) | LOC: BICMAMMO 12:08 | PROVIDERS: ATTEND Family Medicine | DX: Z12.31 Encounter for screening mammogram for malignant neoplasm of breast (principal); Z85.820 Personal history of malignant melanoma of skin | CPT/HCPCS: 77063; 77067 ==

== ENCOUNTER 2023-07-17 10:08 | Outpatient (CLI) | payer BC, MEDICARE, OTHER | END 2023-07-17 10:09 | disposition home or self-care (01) | LOC: BICMAMMO 10:08 | PROVIDERS: ATTEND Family Medicine | DX: Z12.31 Encounter for screening mammogram for malignant neoplasm of breast (principal); Z85.820 Personal history of malignant melanoma of skin | CPT/HCPCS: 77063; 77067 ==